=== PATIENT | female | born 1955 | race Asian ===

== ENCOUNTER → 2017-05-24 | Outpatient (REF) | payer OTHER ==
[2017-05-24 16:23] LABS: BASO % 0.7 % (0.0-1.0); EOS # 0.3 10^3/uL (0.0-0.50); EOS % 5.9 % (0.0-3.0); IMMATURE GRANULOCYTE % 0.2 % (0-0); LYMPH # 2.2 10^3/uL (1.5-4.5); LYMPH % 40.4 % (24.0-44.0); MEAN CORPUSCULAR HEMOGLOBIN 27.2 pg (27.0-33.0); MEAN CORPUSCULAR HGB CONC 31.8 g/dl (32.0-36.5); MEAN CORPUSCULAR VOLUME 85.6 fl (80.0-96.0); MONO # 0.4 10^3/uL (0.0-0.8); MONO % 7.7 % (0.0-5.0); NEUTROPHILS # 2.5 10^3/uL (1.8-7.7); NEUTROPHILS % 45.1 % (36.0-66.0); PLATELET COUNT, AUTOMATED 296 10^3/uL (150-450); RED CELL DISTRIBUTION WIDTH 13.8 % (11.5-14.5); WHITE BLOOD COUNT 5.5 10^3/uL (4.0-10.0)
[2017-05-24 16:26] LABS: FOLATE 22.7 NG/ML (>5.4); VITAMIN B12 LEVEL 452 PG/ML (247-911)
[2017-05-24 16:29] LABS: ADD MORPHOLOGY? NO
[2017-05-24 16:33] LABS: ALBUMIN 3.6 GM/DL (3.2-5.2); ALKALINE PHOSPHATASE 103 U/L (45-117); ALT/SGPT 17 U/L (12-78); ANION GAP 7 MEQ/L (8-16); AST/SGOT 16 U/L (15-37); BILIRUBIN,TOTAL 0.3 MG/DL (0.2-1.0); BLOOD UREA NITROGEN 17 MG/DL (7-18); CARBON DIOXIDE LEVEL 29 MEQ/L (21-32); CHLORIDE LEVEL 105 MEQ/L (98-107); CHOLESTEROL LEVEL 226 MG/DL (<200); CREATININE FOR GFR 0.62 MG/DL (0.55-1.02); FREE T4 0.98 NG/DL (0.76-1.46); GLOMERULAR FILTRATION RATE > 60.0 (>45); GLUCOSE, FASTING 82 MG/DL (80-110); POTASSIUM SERUM 3.5 MEQ/L (3.5-5.1); SODIUM LEVEL 141 MEQ/L (136-145); TOTAL PROTEIN 7.2 GM/DL (6.4-8.2); TRIGLYCERIDES LEVEL 123 MG/DL (<150)
[2017-05-24 17:19] LABS: ERYTHROCYTE SEDIMENTATION RATE 39 mm/hr (0-30)
== END ==
LOC: M LABDRAW1 15:30
PROVIDERS: ATTEND Nurse Practitioner Adult Health
DX: Z51.81 Encounter for therapeutic drug level monitoring (principal); Z79.899 Other long term (current) drug therapy; E55.9 Vitamin D deficiency, unspecified; D64.9 Anemia, unspecified; M06.9 Rheumatoid arthritis, unspecified

== ENCOUNTER → 2017-07-17 | Outpatient (CLI) | payer BC ==
[2017-07-17 11:52] LABS: MEAN CORPUSCULAR HEMOGLOBIN 27.5 pg (27.0-33.0); MEAN CORPUSCULAR HGB CONC 32.2 g/dl (32.0-36.5); MEAN CORPUSCULAR VOLUME 85.5 fl (80.0-96.0); PLATELET COUNT, AUTOMATED 298 10^3/uL (150-450); RED CELL DISTRIBUTION WIDTH 13.7 % (11.5-14.5)
[2017-07-17 12:26] LABS: PERCENT SATURATION 16.9 % (13.2-45.0)
== END ==
LOC: M LABDRAW1 10:09
PROVIDERS: ATTEND Specialist
DX: K21.9 Gastro-esophageal reflux disease without esophagitis (principal); D64.9 Anemia, unspecified

== ENCOUNTER → 2017-07-18 | Outpatient (REF) | payer OTHER | LOC: M LAB REF 11:27 | PROVIDERS: ATTEND Specialist | DX: D64.9 Anemia, unspecified (principal); K21.9 Gastro-esophageal reflux disease without esophagitis ==

== ENCOUNTER → 2017-07-31 | Outpatient (REF) | payer OTHER ==
[2017-07-31 15:38] LABS: BASO # 0.1 10^3/uL (0.0-0.2); BASO % 1.1 % (0.0-1.0); EOS # 0.3 10^3/uL (0.0-0.50); EOS % 5.4 % (0.0-3.0); IMMATURE GRANULOCYTE % 0.2 % (0-0); LYMPH # 2.1 10^3/uL (1.5-4.5); MEAN CORPUSCULAR HEMOGLOBIN 27.3 pg (27.0-33.0); MEAN CORPUSCULAR VOLUME 85.5 fl (80.0-96.0); MONO # 0.4 10^3/uL (0.0-0.8); MONO % 8.6 % (0.0-5.0); NEUTROPHILS # 1.9 10^3/uL (1.8-7.7); NEUTROPHILS % 40.7 % (36.0-66.0); PLATELET COUNT, AUTOMATED 297 10^3/uL (150-450); RED CELL DISTRIBUTION WIDTH 13.8 % (11.5-14.5); WHITE BLOOD COUNT 4.7 10^3/uL (4.0-10.0)
[2017-07-31 16:11] LABS: ALT/SGPT 15 U/L (12-78); CREATININE FOR GFR 0.72 MG/DL (0.55-1.02); GLOMERULAR FILTRATION RATE > 60.0 (>45)
[2017-07-31 17:44] LABS: ERYTHROCYTE SEDIMENTATION RATE 24 mm/hr (0-30)
== END ==
LOC: M LABDRAW1 11:15
PROVIDERS: ATTEND Internal Medicine Rheumatology
DX: Z51.81 Encounter for therapeutic drug level monitoring (principal); Z79.899 Other long term (current) drug therapy; M35.1 Other overlap syndromes

== ENCOUNTER → 2017-12-28 | Outpatient (REF) | payer OTHER ==
[2017-12-28 11:45] LABS: BASO % 0.7 % (0.0-1.0); EOS # 0.4 10^3/uL (0.0-0.50); EOS % 6.5 % (0.0-3.0); HEMATOCRIT 33.6 % (36.0-47.0); HEMOGLOBIN 10.8 g/dl (12.0-15.5); IMMATURE GRANULOCYTE % 0.2 % (0-3.0); LYMPH # 2.4 10^3/uL (1.5-4.5); LYMPH % 42.1 % (24.0-44.0); MEAN CORPUSCULAR HEMOGLOBIN 27.1 pg (27.0-33.0); MEAN CORPUSCULAR HGB CONC 32.1 g/dl (32.0-36.5); MEAN CORPUSCULAR VOLUME 84.4 fl (80.0-96.0); MONO # 0.5 10^3/uL (0.0-0.8); NEUTROPHILS # 2.4 10^3/uL (1.8-7.7); NEUTROPHILS % 42.5 % (36.0-66.0); PLATELET COUNT, AUTOMATED 275 10^3/uL (150-450); RED BLOOD COUNT 3.98 10^6/uL (4.00-5.40); RED CELL DISTRIBUTION WIDTH 14.3 % (11.5-14.5); WHITE BLOOD COUNT 5.7 10^3/uL (4.0-10.0)
[2017-12-28 12:05] LABS: TOTAL 25(OH) VITAMIN D 17.5 NG/ML (30.0-100.0)
[2017-12-28 12:06] LABS: FOLATE 19.3 NG/ML (>5.4); VITAMIN B12 LEVEL 497 PG/ML (247-911)
[2017-12-28 12:13] LABS: ALBUMIN 3.7 GM/DL (3.2-5.2); ALBUMIN/GLOBULIN RATIO 0.95 (1.00-1.93); ALKALINE PHOSPHATASE 108 U/L (45-117); ALT/SGPT 20 U/L (12-78); ANION GAP 8 MEQ/L (8-16); AST/SGOT 22 U/L (7-37); BILIRUBIN,TOTAL 0.4 MG/DL (0.2-1.0); BLOOD UREA NITROGEN 13 MG/DL (7-18); CALCIUM LEVEL 9.2 MG/DL (8.8-10.2); CARBON DIOXIDE LEVEL 28 MEQ/L (21-32); CHLORIDE LEVEL 107 MEQ/L (98-107); CHOLESTEROL LEVEL 232 MG/DL (<200); CHOLESTEROL RISK RATIO 3.741 (<5); CREATININE FOR GFR 0.78 MG/DL (0.55-1.30); FERRITIN 11 NG/ML (8-252); FREE T4 1.01 NG/DL (0.76-1.46); GLOMERULAR FILTRATION RATE > 60.0 (>45); GLUCOSE, FASTING 96 MG/DL (70-100); HDL CHOLESTEROL 62 MG/DL (>40); IRON (FE) 66 UG/DL (50-170); LDL CHOLESTEROL 131.4 MG/DL (<100); NON-HDL-C 170 MG/DL; PERCENT SATURATION 17.9 % (13.2-45.0); POTASSIUM SERUM 3.6 MEQ/L (3.5-5.1); SODIUM LEVEL 143 MEQ/L (136-145); TOTAL IRON BINDING CAPACITY 369 UG/DL (250-450); TOTAL PROTEIN 7.6 GM/DL (6.4-8.2); TRIGLYCERIDES LEVEL 193 MG/DL (<150)
[2017-12-28 12:38] LABS: ESTIMATED AVERAGE GLUCOSE 140 MG/DL (60-110); HEMOGLOBIN A1c 6.5 %
[2017-12-28 16:00] LABS: MALB URINE SIEMENS 14.8 MG/L; MAU/CREAT RATIO 12.7 MCG/MG (0.0-30.0)
== END ==
LOC: M LABDRAW1 08:29
DX: D64.9 Anemia, unspecified (principal); E55.9 Vitamin D deficiency, unspecified; R53.1 Weakness; R53.83 Other fatigue; Z79.899 Other long term (current) drug therapy

== ENCOUNTER → 2018-06-04 | Outpatient (CLI) | payer OTHER | LOC: M LRY 12:11 | DX: M15.0 Primary generalized (osteo)arthritis (principal) ==

== ENCOUNTER → 2018-10-21 | Outpatient (REF) | payer OTHER ==
[2018-10-21 16:40] LABS: BASO # 0.1 10^3/uL (0.0-0.2); BASO % 0.7 % (0.0-1.0); EOS # 0.4 10^3/uL (0.0-0.50); EOS % 5.7 % (0.0-3.0); HEMATOCRIT 35.1 % (36.0-47.0); HEMOGLOBIN 11.4 g/dl (12.0-15.5); LYMPH % 40.3 % (24.0-44.0); MEAN CORPUSCULAR HEMOGLOBIN 27.9 pg (27.0-33.0); MEAN CORPUSCULAR HGB CONC 32.5 g/dl (32.0-36.5); MEAN CORPUSCULAR VOLUME 85.8 fl (80.0-96.0); MONO # 0.7 10^3/uL (0.0-0.8); NEUTROPHILS # 3.2 10^3/uL (1.8-7.7); NEUTROPHILS % 44.2 % (36.0-66.0); PLATELET COUNT, AUTOMATED 287 10^3/uL (150-450); RED BLOOD COUNT 4.09 10^6/uL (4.00-5.40); WHITE BLOOD COUNT 7.3 10^3/uL (4.0-10.0)
[2018-10-21 17:02] LABS: ALT/SGPT 18 U/L (12-78); BILIRUBIN,TOTAL 0.3 MG/DL (0.2-1.0); BLOOD UREA NITROGEN 13 MG/DL (7-18); CARBON DIOXIDE LEVEL 27 MEQ/L (21-32); CHLORIDE LEVEL 106 MEQ/L (98-107); CREATININE FOR GFR 0.65 MG/DL (0.55-1.30); GLOMERULAR FILTRATION RATE > 60.0 (>45); GLUCOSE, FASTING 113 MG/DL (70-100); SODIUM LEVEL 141 MEQ/L (136-145); TOTAL PROTEIN 7.8 GM/DL (6.4-8.2)
== END ==
LOC: M SFHCPLAZ 14:33
PROVIDERS: ATTEND Internal Medicine Rheumatology
DX: M15.0 Primary generalized (osteo)arthritis (principal)

== ENCOUNTER → 2018-11-08 | Outpatient (REF) | payer OTHER ==
[2018-11-08 13:38] LABS: HEMATOCRIT 34.8 % (36.0-47.0); HEMOGLOBIN 11.1 g/dl (12.0-15.5); MEAN CORPUSCULAR HEMOGLOBIN 27.8 pg (27.0-33.0); MEAN CORPUSCULAR HGB CONC 31.9 g/dl (32.0-36.5); PLATELET COUNT, AUTOMATED 269 10^3/uL (150-450); WHITE BLOOD COUNT 5.6 10^3/uL (4.0-10.0)
[2018-11-08 13:42] LABS: APPEARANCE, URINE CLEAR (CLEAR); BACTERIA, URINE AUTO NEGATIVE (NEGATIVE); BILIRUBIN, URINE AUTO NEGATIVE (NEGATIVE); BLOOD, URINE BLOOD 1+ (NEGATIVE); COLOR, URINE YELLOW (YELLOW); GLUCOSE, URINE (UA) AUTO NEGATIVE (NEGATIVE); KETONE, URINE AUTO NEGATIVE (NEGATIVE); LEUKOCYTE ESTERASE, URINE AUTO NEGATIVE (NEGATIVE); MUCUS, URINE SMALL (NEGATIVE); NITRITE, URINE AUTO NEGATIVE (NEGATIVE); PROTEIN, URINE AUTO NEGATIVE (NEGATIVE); RBC, URINE AUTO 5 /HPF (0-3); SPECIFIC GRAVITY URINE AUTO 1.018 (1.002-1.035); SQUAMOUS EPITHELIAL CELL UR AU 1 /HPF (0-6); UROBILINOGEN, URINE AUTO 0.2 mg/dL (0.0-2.0); WBC, URINE AUTO 1 /HPF (0-3)
[2018-11-08 13:45] LABS: ALBUMIN 3.8 GM/DL (3.2-5.2); ALT/SGPT 32 U/L (12-78); BILIRUBIN,TOTAL 0.5 MG/DL (0.2-1.0); BLOOD UREA NITROGEN 16 MG/DL (7-18); C REACTIVE PROTEIN QUANTITATIV < 0.30 MG/DL (0.00-0.30); CARBON DIOXIDE LEVEL 28 MEQ/L (21-32); CHLORIDE LEVEL 107 MEQ/L (98-107); CHOLESTEROL LEVEL 223 MG/DL (<200); CHOLESTEROL RISK RATIO 3.328 (<5); CPK CREATINE PHOSPHOKINASE 70 U/L (26-192); CREATININE FOR GFR 0.76 MG/DL (0.55-1.30); FREE T4 0.95 NG/DL (0.76-1.46); GLOMERULAR FILTRATION RATE > 60.0 (>45); GLUCOSE, FASTING 93 MG/DL (70-100); HDL CHOLESTEROL 67 MG/DL (>40); LDL CHOLESTEROL 110 MG/DL (<100); NON-HDL-C 156 MG/DL; POTASSIUM SERUM 3.9 MEQ/L (3.5-5.1); RHEUMATOID FACTOR QUANT < 10.0 IU/ML (<15.0); SODIUM LEVEL 139 MEQ/L (136-145); TOTAL PROTEIN 7.5 GM/DL (6.4-8.2); TRIGLYCERIDES LEVEL 228 MG/DL (<150)
[2018-11-08 13:54] LABS: HEMOGLOBIN A1c 6.1 %
[2018-11-08 14:37] LABS: ERYTHROCYTE SEDIMENTATION RATE 22 mm/hr (0-30)
[2018-11-09 15:10] LABS: ANTINUCLEAR ANTIBODIES DIRECT Negative (Negative)
[2018-11-12 00:09] LABS: CYCLIC CITRULLINATED PEPTIDE 6 units (0-19)
== END ==
LOC: M LABDRAW1 12:56
PROVIDERS: ATTEND Internal Medicine Cardiovascular Disease
DX: D64.9 Anemia, unspecified (principal); E03.9 Hypothyroidism, unspecified; M10.9 Gout, unspecified; E78.5 Hyperlipidemia, unspecified

== ENCOUNTER 2019-02-04 01:33 | Emergency (ER) | payer BC, OTHER ==
[~2019-02-04] VITALS: Ht 154.9 cm; Wt 61.8 kg
[2019-02-04 01:55] LABS: BASO # 0.1 10^3/uL (0.0-0.2); BASO % 0.6 % (0.0-1.0); EOS # 0.7 10^3/uL (0.0-0.50); EOS % 8.6 % (0.0-3.0); HEMATOCRIT 32.2 % (36.0-47.0); HEMOGLOBIN 10.4 g/dl (12.0-15.5); LYMPH # 3.1 10^3/uL (1.5-4.5); LYMPH % 37.9 % (24.0-44.0); MEAN CORPUSCULAR HEMOGLOBIN 28.3 pg (27.0-33.0); MEAN CORPUSCULAR HGB CONC 32.3 g/dl (32.0-36.5); MEAN CORPUSCULAR VOLUME 87.5 fl (80.0-96.0); MONO # 0.7 10^3/uL (0.0-0.8); NEUTROPHILS # 3.7 10^3/uL (1.8-7.7); NEUTROPHILS % 44.8 % (36.0-66.0); PLATELET COUNT, AUTOMATED 259 10^3/uL (150-450); RED BLOOD COUNT 3.68 10^6/uL (4.00-5.40); WHITE BLOOD COUNT 8.3 10^3/uL (4.0-10.0)
[2019-02-04 02:11] LABS: INR 0.95; PROTHROMBIN TIME 12.8 SECONDS (12.1-14.4)
[2019-02-04 02:22] LABS: ALBUMIN 3.5 GM/DL (3.2-5.2); ALT/SGPT 16 U/L (12-78); BILIRUBIN,TOTAL 0.3 MG/DL (0.2-1.0); BLOOD UREA NITROGEN 20 MG/DL (7-18); CALCIUM LEVEL 8.5 MG/DL (8.8-10.2); CARBON DIOXIDE LEVEL 28 MEQ/L (21-32); CHLORIDE LEVEL 110 MEQ/L (98-107); CK-MB VALUE MASS < 1.0 NG/ML (<3.6); CPK CREATINE PHOSPHOKINASE 101 U/L (26-192); CREATININE FOR GFR 0.81 MG/DL (0.55-1.30); GLOMERULAR FILTRATION RATE > 60.0 (>45); GLUCOSE, FASTING 110 MG/DL (70-100); LIPASE 193 U/L (73-393); MB/CK RELATIVE INDEX 0.99 (< OR =4); POTASSIUM SERUM 3.5 MEQ/L (3.5-5.1); SODIUM LEVEL 145 MEQ/L (136-145); TOTAL PROTEIN 7.4 GM/DL (6.4-8.2); TROPONIN I < 0.02 NG/ML (< 0.10)
[2019-02-04] MEDS ORDERED: IPRATROPIUM 0.5MG/ALBUTEROL 2.5MG INH SOL UD 3ML (DUONEB)(J7620) NEB ONE (03:00)
[2019-02-04] MEDS ORDERED: dexameTHASONE 20 MG/5 ML VIAL (J1100) IV ONE (03:00)
[2019-02-04] MEDS ORDERED: ALBU17IN2 INH (03:37)
[2019-02-04] MEDS ORDERED: PRED20TA PO (03:37)
[2019-02-04 03:42] VITALS: BP 115/74
--- NOTE | 2019-02-04 08:18 | ECGEPIP ---
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
--- NOTE | 2019-02-04 08:52 | REP ---
CHEST, SINGLE VIEW: Single view of the chest is performed and compared to a prior study of 12/25/2015. There is no acute infiltrate. Mild chronic interstitial prominence is noted in the lung bases bilaterally. There is mild cardiomegaly. Mediastinal silhouette is unchanged. IMPRESSION: Mild cardiomegaly. No acute infiltrate or pulmonary edema. Electronically Signed by Robinson Jones MD 02/04/2019 12:44 P
== END 2019-02-04 03:53 | disposition home or self-care (01) ==
LOC: M ED 01:33
DX: J40 Bronchitis, not specified as acute or chronic (principal); J30.2 Other seasonal allergic rhinitis; M19.90 Unspecified osteoarthritis, unspecified site; Z88.6 Allergy status to analgesic agent
CPT/HCPCS: 71045; 80053; 82550; 82553; 83690; 84484; 85025; 85610; 93005; 93041; 94640; 94760; 96374; 99285; J1100

== ENCOUNTER → 2019-03-24 | Outpatient (CLI) | payer BC, OTHER ==
[~2019-03-24] MED LIST: ALBU17IN2 INH; PRED20TA PO
--- NOTE | 2019-03-24 16:04 | REP ---
Bilateral lower extremity arterial Doppler ultrasound: History: Intermittent claudication, atherosclerosis. Findings: The ankle brachial indices are normal, 1.1 on the right, and 1.0 on the left. Mild calcific plaquing is observed. No high-grade stenosis is seen on either side. Velocity chart right lower extremity arteries:Right CF A 144 cm/SProfunda 88Proximal SFA 122/133Mid SFA 128/108Distal SFA 98Popliteal 84Proximal NAIMA 41Tibioperoneal trunk 66Proximal SOLDERER PRODUCTION LINE 49 nineDistal SOLDERER PRODUCTION LINE 27/28Distal NAIMA 93 Velocity chart left lower extremity arteries:Left SOLAR SALES MANAGER 151 cm/SProfunda 89Proximal SFA 126/119Mid SFA 127/104Distal SFA 76Popliteal 94Proximal NAIMA 39Tibioperoneal trunk 50Proximal SOLDERER PRODUCTION LINE 58Distal SOLDERER PRODUCTION LINE 94Distal AT A 40 Electronically Signed by Ezequiel Herrera MD 03/24/2019 05:18 P
== END ==
LOC: M RAD 12:34
PROVIDERS: ATTEND Surgery Vascular Surgery
DX: I70.213 Atherosclerosis of native arteries of extremities with intermittent claudication, bilateral legs (principal); I87.393 Chronic venous hypertension (idiopathic) with other complications of bilateral lower extremity

== ENCOUNTER → 2019-03-26 | Outpatient (CLI) | payer BC, OTHER ==
[~2019-03-26] MED LIST changes: -ALBU17IN2 INH; +PROV108A INH
--- NOTE | 2019-03-26 13:53 | REP ---
Lower Extremity Vein Mapping: Right Reflux Left Reflux CFV Reflux yes no Ant. Acc. GSV Present no yes Reflux -- no Greater saph/fem junction 5.8 mm no 5.4 mm no Greater saph vein mid thigh 2.9 mm no 3.7 mm no Greater saph vein at knee -- mm no -- mm no SFV PROX -- mm yes -- mm no SFV MID -- mm yes -- mm no SFV DISTAL -- mm no --mm no POPLITEAL VEIN -- mm no --mm no LSV 2.8 mm no 2.9 mm no Right lower extremity: There is a small volume of reflux in the deep system with the bed tipped. No reflux is identified in the G S V. Left lower extremity: No reflux is identified in the deep or superficial system. Electronically Signed by Robinson Lyon MD 03/26/2019 01:44 P
== END ==
LOC: M RAD 12:30
PROVIDERS: ATTEND Surgery Vascular Surgery
DX: I70.213 Atherosclerosis of native arteries of extremities with intermittent claudication, bilateral legs (principal); I87.393 Chronic venous hypertension (idiopathic) with other complications of bilateral lower extremity

== ENCOUNTER → 2019-05-14 | Outpatient (REF) | payer OTHER ==
[2019-05-14 16:18] LABS: APPEARANCE, URINE CLEAR (CLEAR); BACTERIA, URINE AUTO NEGATIVE (NEGATIVE); BILIRUBIN, URINE AUTO NEGATIVE (NEGATIVE); BLOOD, URINE BLOOD 1+ (NEGATIVE); COLOR, URINE YELLOW (YELLOW); GLUCOSE, URINE (UA) AUTO NEGATIVE (NEGATIVE); KETONE, URINE AUTO NEGATIVE (NEGATIVE); LEUKOCYTE ESTERASE, URINE AUTO NEGATIVE (NEGATIVE); MUCUS, URINE SMALL (NEGATIVE); NITRITE, URINE AUTO NEGATIVE (NEGATIVE); PROTEIN, URINE AUTO NEGATIVE (NEGATIVE); RBC, URINE AUTO 8 /HPF (0-3); SPECIFIC GRAVITY URINE AUTO 1.011 (1.002-1.035); SQUAMOUS EPITHELIAL CELL UR AU 3 /HPF (0-6); UROBILINOGEN, URINE AUTO 0.2 mg/dL (0.0-2.0); WBC, URINE AUTO 0 /HPF (0-3)
[2019-05-14 16:21] LABS: HEMATOCRIT 34.9 % (36.0-47.0); HEMOGLOBIN 10.9 g/dl (12.0-15.5); MEAN CORPUSCULAR HEMOGLOBIN 28.2 pg (27.0-33.0); MEAN CORPUSCULAR HGB CONC 31.2 g/dl (32.0-36.5); MEAN CORPUSCULAR VOLUME 90.2 fl (80.0-96.0); PLATELET COUNT, AUTOMATED 256 10^3/uL (150-450); RED BLOOD COUNT 3.87 10^6/uL (4.00-5.40); WHITE BLOOD COUNT 5.3 10^3/uL (4.0-10.0)
[2019-05-14 16:36] LABS: ALBUMIN 3.6 GM/DL (3.2-5.2); ALT/SGPT 10 U/L (12-78); BILIRUBIN,TOTAL 0.5 MG/DL (0.2-1.0); BLOOD UREA NITROGEN 8 MG/DL (7-18); CALCIUM LEVEL 9.1 MG/DL (8.8-10.2); CARBON DIOXIDE LEVEL 27 MEQ/L (21-32); CHLORIDE LEVEL 108 MEQ/L (98-107); CHOLESTEROL LEVEL 152 MG/DL (<200); CHOLESTEROL RISK RATIO 2.338 (<5); CREATININE FOR GFR 0.77 MG/DL (0.55-1.30); FREE T4 1.07 NG/DL (0.76-1.46); GLOMERULAR FILTRATION RATE > 60.0 (>45); GLUCOSE, FASTING 82 MG/DL (70-100); HDL CHOLESTEROL 65 MG/DL (>40); IRON (FE) 72 UG/DL (50-170); LDL CHOLESTEROL 61 MG/DL (<100); MAGNESIUM LEVEL 2.1 MG/DL (1.8-2.4); NON-HDL-C 87 MG/DL; SODIUM LEVEL 141 MEQ/L (136-145); TOTAL PROTEIN 7.2 GM/DL (6.4-8.2); TRIGLYCERIDES LEVEL 131 MG/DL (<150); URIC ACID 4.9 MG/DL (2.6-6.0); VITAMIN B12 LEVEL 694 PG/ML (247-911)
[2019-05-14 18:46] LABS: HEMOGLOBIN A1c 6.3 %
== END ==
LOC: M LABDRAW1 12:39
PROVIDERS: ATTEND Internal Medicine Cardiovascular Disease
DX: E78.5 Hyperlipidemia, unspecified (principal); M15.9 Polyosteoarthritis, unspecified; I11.9 Hypertensive heart disease without heart failure; I49.49 Other premature depolarization; D64.9 Anemia, unspecified; R53.83 Other fatigue; K21.9 Gastro-esophageal reflux disease without esophagitis; K50.90 Crohn's disease, unspecified, without complications; I10 Essential (primary) hypertension

== ENCOUNTER → 2020-04-02 | Outpatient (REF) | payer OTHER ==
[2020-05-01 03:47] LABS: APPEARANCE, URINE HAZY (CLEAR); BACTERIA, URINE AUTO NEGATIVE (NEGATIVE); BILIRUBIN, URINE AUTO NEGATIVE (NEGATIVE); BLOOD, URINE BLOOD NEGATIVE (NEGATIVE); CALCIUM OXALATE CRYSTALS SMALL; COLOR, URINE YELLOW (YELLOW); ERYTHROCYTE SEDIMENTATION RATE 26 mm/hr (0-30); GLUCOSE, URINE (UA) AUTO NEGATIVE (NEGATIVE); HEMATOCRIT 37.1 % (36.0-47.0); HEMOGLOBIN 11.8 g/dl (12.0-15.5); KETONE, URINE AUTO NEGATIVE (NEGATIVE); LEUKOCYTE ESTERASE, URINE AUTO NEGATIVE (NEGATIVE); MEAN CORPUSCULAR HEMOGLOBIN 27.9 pg (27.0-33.0); MEAN CORPUSCULAR HGB CONC 31.8 g/dl (32.0-36.5); MEAN CORPUSCULAR VOLUME 87.7 fl (80.0-96.0); MUCUS, URINE SMALL (NEGATIVE); NITRITE, URINE AUTO NEGATIVE (NEGATIVE); PLATELET COUNT, AUTOMATED 271 10^3/uL (150-450); PROTEIN, URINE AUTO NEGATIVE (NEGATIVE); RBC, URINE AUTO 2 /HPF (0-3); RED BLOOD COUNT 4.23 10^6/uL (4.00-5.40); SPECIFIC GRAVITY URINE AUTO 1.017 (1.002-1.035); SQUAMOUS EPITHELIAL CELL UR AU 5 /HPF (0-6); UROBILINOGEN, URINE AUTO 0.2 mg/dL (0.0-2.0); WBC, URINE AUTO 3 /HPF (0-3); WHITE BLOOD COUNT 7.4 10^3/uL (4.0-10.0)
[2020-05-10 09:23] LABS: Lyme Disease IgG/IgM Antibodie See Separate Report
[2020-05-10 09:24] LABS: ANTINUCLEAR ANTIBODIES DIRECT See Separate Report
[2020-05-19 04:48] LABS: HEMOGLOBIN A1c 6.1 %
[2020-05-19 04:49] LABS: ALBUMIN 3.9 GM/DL (3.2-5.2); ALT/SGPT 12 U/L (12-78); BILIRUBIN,TOTAL 0.5 MG/DL (0.2-1.0); BLOOD UREA NITROGEN 10 MG/DL (7-18); CALCIUM LEVEL 9.3 MG/DL (8.8-10.2); CARBON DIOXIDE LEVEL 28 MEQ/L (21-32); CHLORIDE LEVEL 108 MEQ/L (98-107); CHOLESTEROL LEVEL 250 MG/DL (<200); CHOLESTEROL RISK RATIO 3.731 (<5); CPK CREATINE PHOSPHOKINASE 58 U/L (26-192); CREATININE FOR GFR 0.76 MG/DL (0.55-1.30); GLOMERULAR FILTRATION RATE > 60.0 (>45); GLUCOSE, FASTING 87 MG/DL (70-100); HDL CHOLESTEROL 67 MG/DL (>40); IRON (FE) 93 UG/DL (50-170); LDL CHOLESTEROL 155 MG/DL (<100); MAGNESIUM LEVEL 2.1 MG/DL (1.8-2.4); NON-HDL-C 183 MG/DL; RHEUMATOID FACTOR QUANT < 10.0 IU/ML (<15.0); SODIUM LEVEL 140 MEQ/L (136-145); TOTAL PROTEIN 7.5 GM/DL (6.4-8.2); TRIGLYCERIDES LEVEL 138 MG/DL (<150)
== END ==
LOC: M PLALAB 06:27
PROVIDERS: ATTEND Internal Medicine Cardiovascular Disease
DX: E11.9 Type 2 diabetes mellitus without complications (principal); N39.0 Urinary tract infection, site not specified; E78.5 Hyperlipidemia, unspecified; D64.9 Anemia, unspecified; M19.90 Unspecified osteoarthritis, unspecified site

== ENCOUNTER → 2020-06-26 | Outpatient (CLI) | payer OTHER ==
[2020-06-26 13:28] LABS: HEMATOCRIT 36.6 % (36.0-47.0); HEMOGLOBIN 11.4 g/dl (12.0-15.5); MEAN CORPUSCULAR HEMOGLOBIN 27.9 pg (27.0-33.0); MEAN CORPUSCULAR HGB CONC 31.1 g/dl (32.0-36.5); MEAN CORPUSCULAR VOLUME 89.5 fl (80.0-96.0); PLATELET COUNT, AUTOMATED 277 10^3/uL (150-450); RED BLOOD COUNT 4.09 10^6/uL (4.00-5.40); WHITE BLOOD COUNT 6.8 10^3/uL (4.0-10.0)
[2020-06-26 14:08] LABS: ALBUMIN 3.7 GM/DL (3.2-5.2); ALT/SGPT < 6 U/L (12-78); BILIRUBIN,TOTAL 0.5 MG/DL (0.2-1.0); BLOOD UREA NITROGEN 10 MG/DL (7-18); CALCIUM LEVEL 10.6 MG/DL (8.8-10.2); CARBON DIOXIDE LEVEL 18 MEQ/L (21-32); CHLORIDE LEVEL 108 MEQ/L (98-107); CHOLESTEROL LEVEL 131 MG/DL (<200); CHOLESTEROL RISK RATIO 2.079 (<5); CPK CREATINE PHOSPHOKINASE 32 U/L (26-192); CREATININE FOR GFR 0.21 MG/DL (0.55-1.30); GLOMERULAR FILTRATION RATE > 60.0 (>45); GLUCOSE, FASTING 89 MG/DL (70-100); HDL CHOLESTEROL 63 MG/DL (>40); IRON (FE) 79 UG/DL (50-170); LDL CHOLESTEROL 33 MG/DL (<100); NON-HDL-C 68 MG/DL; POTASSIUM SERUM 4.4 MEQ/L (3.5-5.1); SODIUM LEVEL 141 MEQ/L (136-145); TOTAL PROTEIN 7.1 GM/DL (6.4-8.2); TRIGLYCERIDES LEVEL 176 MG/DL (<150)
== END ==
LOC: M WUC 11:50
PROVIDERS: ATTEND Internal Medicine Cardiovascular Disease
DX: E78.5 Hyperlipidemia, unspecified (principal)

== ENCOUNTER 2020-08-12 01:58 | Emergency (ER) | payer BC, OTHER ==
[~2020-08-12] VITALS: Ht 154.9 cm; Wt 59.9 kg
[2020-08-12] MEDS ORDERED: PANT40TA29 (02:15)
[2020-08-12] MEDS ORDERED: MIRT-62 (02:15)
[2020-08-12] MEDS ORDERED: AMOX500T2 (02:15)
[2020-08-12] MEDS ORDERED: ROSU5TAB5 (02:15)
[2020-08-12] MEDS ORDERED: GI COCKTAIL 50ML BTL(HYOSCYAMINE/MAALOX/LIDOCAINE VISCOUS)(1:3:1) PO ONE (03:00)
[2020-08-12] MEDS ORDERED: NS 1,000 ML IV ONE (03:00)
[2020-08-12 03:04] LABS: BASO % 0.2 % (0.0-1.0); EOS # 0.2 10^3/uL (0.0-0.5); EOS % 1.1 % (0.0-3.0); HEMATOCRIT 35.8 % (36.0-47.0); HEMOGLOBIN 11.3 g/dl (12.0-15.5); LYMPH # 1.3 10^3/uL (1.5-5.0); LYMPH % 9.5 % (24.0-44.0); MEAN CORPUSCULAR HEMOGLOBIN 27.8 pg (27.0-33.0); MEAN CORPUSCULAR HGB CONC 31.6 g/dl (32.0-36.5); MONO % 7.3 % (0.0-5.0); NEUTROPHILS # 10.8 10^3/uL (1.5-8.5); NEUTROPHILS % 81.6 % (36.0-66.0); PLATELET COUNT, AUTOMATED 269 10^3/uL (150-450); RED BLOOD COUNT 4.07 10^6/uL (4.00-5.40); WHITE BLOOD COUNT 13.3 10^3/uL (4.0-10.0)
[2020-08-12 03:08] LABS: INR 0.96
[2020-08-12 03:17] LABS: ALBUMIN 3.9 GM/DL (3.2-5.2); ALT/SGPT 30 U/L (12-78); BILIRUBIN,TOTAL 0.4 MG/DL (0.2-1.0); BLOOD UREA NITROGEN 13 MG/DL (7-18); CALCIUM LEVEL 8.8 MG/DL (8.8-10.2); CARBON DIOXIDE LEVEL 26 MEQ/L (21-32); CHLORIDE LEVEL 106 MEQ/L (98-107); CK-MB VALUE MASS < 1.0 NG/ML (<3.6); CPK CREATINE PHOSPHOKINASE 62 U/L (26-192); CREATININE FOR GFR 0.78 MG/DL (0.55-1.30); GLOMERULAR FILTRATION RATE > 60.0 (>45); GLUCOSE, FASTING 126 MG/DL (70-100); MB/CK RELATIVE INDEX 1.61 (< OR =4); POTASSIUM SERUM 3.6 MEQ/L (3.5-5.1); SODIUM LEVEL 141 MEQ/L (136-145); TOTAL PROTEIN 7.8 GM/DL (6.4-8.2); TROPONIN I < 0.02 NG/ML (< 0.10)
--- NOTE | 2020-08-12 03:46 | REPVR ---
PROCEDURE INFORMATION: Exam: XR Chest, 1 View Exam date and time: 08/12/2020 2:46 AM Age: 65 years old Clinical indication: Other: Cp; Additional info: Chest pain TECHNIQUE: Imaging protocol: XR of the chest Views: 1 view. COMPARISON: CR PORTABLE CHEST X-RAY 2019-02-04 02:24 FINDINGS: Lungs: Unremarkable. No consolidation. Pleural space: Unremarkable. No pleural effusion. No pneumothorax. Heart/Mediastinum: Unremarkable. No cardiomegaly. Bones/joints: Unremarkable. IMPRESSION: No significant change. Electronically signed by: Osiel Meza On 08/12/2020 03:45:53 AM
[2020-08-12 04:33] LABS: RSV AMPLIFICATION NEGATIVE (NEGATIVE)
[2020-08-12] MEDS ORDERED: AZIT-12 PO (04:41)
[2020-08-12 05:00] VITALS: BP 124/63
--- NOTE | 2020-08-12 13:36 | ECGEPIP ---
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
== END 2020-08-12 05:15 | disposition home or self-care (01) ==
LOC: M ED 01:58
DX: K21.9 Gastro-esophageal reflux disease without esophagitis (principal); Z79.899 Other long term (current) drug therapy; Z88.8 Allergy status to other drugs, medicaments and biological substances

== ENCOUNTER → 2020-12-06 | Outpatient (CLI) | payer BC, OTHER ==
[~2020-12-06] MED LIST changes: +AMOX500T2; +AZIT-12 PO; +MIRT-62; +PANT40TA29; +ROSU5TAB5
[2020-12-06 15:45] LABS: HEMATOCRIT 35.9 % (36.0-47.0); HEMOGLOBIN 11.4 g/dl (12.0-15.5); MEAN CORPUSCULAR HGB CONC 31.8 g/dl (32.0-36.5); MEAN CORPUSCULAR VOLUME 88.2 fl (80.0-96.0); PLATELET COUNT, AUTOMATED 244 10^3/uL (150-450); RED BLOOD COUNT 4.07 10^6/uL (4.00-5.40); WHITE BLOOD COUNT 6.9 10^3/uL (4.0-10.0)
[2020-12-06 16:24] LABS: ALBUMIN 3.9 GM/DL (3.2-5.2); ALT/SGPT 14 U/L (12-78); BILIRUBIN,TOTAL 0.6 MG/DL (0.2-1.0); BLOOD UREA NITROGEN 13 MG/DL (7-18); CALCIUM LEVEL 9.4 MG/DL (8.8-10.2); CARBON DIOXIDE LEVEL 28 MEQ/L (21-32); CHLORIDE LEVEL 109 MEQ/L (98-107); CHOLESTEROL LEVEL 181 MG/DL (<200); CHOLESTEROL RISK RATIO 2.381 (<5); GLOMERULAR FILTRATION RATE > 60.0 (>45); GLUCOSE, FASTING 91 MG/DL (70-100); HDL CHOLESTEROL 76 MG/DL (>40); LDL CHOLESTEROL 76 MG/DL (<100); NON-HDL-C 105 MG/DL; POTASSIUM SERUM 4.1 MEQ/L (3.5-5.1); SODIUM LEVEL 141 MEQ/L (136-145); TOTAL PROTEIN 7.5 GM/DL (6.4-8.2); TRIGLYCERIDES LEVEL 143 MG/DL (<150)
== END ==
LOC: M PLALAB 12:21
PROVIDERS: ATTEND Internal Medicine Cardiovascular Disease
DX: E78.5 Hyperlipidemia, unspecified (principal); D64.9 Anemia, unspecified; E03.9 Hypothyroidism, unspecified

== ENCOUNTER 2021-02-25 17:41 | Emergency (ER) | payer BC, OTHER, MEDICARE ==
[~2021-02-25] VITALS: Ht 154.9 cm; Wt 60.8 kg
--- NOTE | 2021-02-25 18:06 | REP ---
INDICATION: CHEST PAIN COMPARISON: 08/12/2020 TECHNIQUE: Portable AP view of the chest FINDINGS: The mediastinum and cardiac silhouette are stable and within normal limits for portable technique. The lung rogers demonstrate stable chronic changes without acute consolidation, effusion, or pneumothorax. Skeletal structures are intact. IMPRESSION: No focal consolidation or effusion. <Electronically signed by Dami Lambert > 02/25/21 [id number]
[2021-02-25] MEDS ORDERED: METO1TAB32 (18:24)
[2021-02-25] MEDS ORDERED: TRAZ-189 (18:24)
[2021-02-25 18:26] LABS: BASO % 0.5 % (0.0-1.0); EOS # 0.4 10^3/uL (0.0-0.5); EOS % 5.8 % (0.0-3.0); HEMATOCRIT 35.5 % (36.0-47.0); HEMOGLOBIN 11.3 g/dl (12.0-15.5); LYMPH # 3.5 10^3/uL (1.5-5.0); LYMPH % 47.6 % (24.0-44.0); MEAN CORPUSCULAR HEMOGLOBIN 28.1 pg (27.0-33.0); MEAN CORPUSCULAR HGB CONC 31.8 g/dl (32.0-36.5); MEAN CORPUSCULAR VOLUME 88.3 fl (80.0-96.0); MONO # 0.6 10^3/uL (0.0-0.8); MONO % 8.5 % (2.0-8.0); NEUTROPHILS # 2.7 10^3/uL (1.5-8.5); NEUTROPHILS % 37.5 % (36.0-66.0); PLATELET COUNT, AUTOMATED 278 10^3/uL (150-450); RED BLOOD COUNT 4.02 10^6/uL (4.00-5.40); WHITE BLOOD COUNT 7.3 10^3/uL (4.0-10.0)
[2021-02-25] MEDS ORDERED: GI COCKTAIL 50ML BTL(HYOSCYAMINE/MAALOX/LIDOCAINE VISCOUS)(1:3:1) PO ONE (18:40)
[2021-02-25] MEDS ORDERED: CARA1TAB6 PO (18:56)
[2021-02-25] MEDS ORDERED: PROT1TAB2 PO (18:56)
[2021-02-25] MEDS ORDERED: METO1TAB32 PO (18:56)
[2021-02-25 19:00] LABS: ALT/SGPT 17 U/L (12-78); BILIRUBIN,DIRECT 0.1 MG/DL (0.0-0.2); BILIRUBIN,TOTAL 0.4 MG/DL (0.2-1.0); BLOOD UREA NITROGEN 10 MG/DL (7-18); CALCIUM LEVEL 9.5 MG/DL (8.8-10.2); CARBON DIOXIDE LEVEL 25 MEQ/L (21-32); CHLORIDE LEVEL 107 MEQ/L (98-107); CK-MB VALUE MASS < 1.0 NG/ML (<3.6); CPK CREATINE PHOSPHOKINASE 94 U/L (26-192); CREATININE FOR GFR 0.68 MG/DL (0.55-1.30); GLOMERULAR FILTRATION RATE > 60.0 (>45); GLUCOSE, FASTING 81 MG/DL (70-100); LIPASE 137 U/L (73-393); MB/CK RELATIVE INDEX 1.06 (< OR =4); POTASSIUM SERUM 3.8 MEQ/L (3.5-5.1); SODIUM LEVEL 141 MEQ/L (136-145); TROPONIN I < 0.02 NG/ML (< 0.10)
[2021-02-25] MEDS ORDERED: METOPROLOL SUCC *XL* 25MG TAB (TopROL *XL*) PO ONE (20:05)
[2021-02-25 20:11] VITALS: BP 156/71
[2021-02-25 20:34] VITALS: BP 149/73
--- NOTE | 2021-02-25 20:35 | ECGEPIP ---
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
== END 2021-02-25 20:36 | disposition home or self-care (01) ==
LOC: M ED 17:41
DX: K21.9 Gastro-esophageal reflux disease without esophagitis (principal); K29.70 Gastritis, unspecified, without bleeding; I10 Essential (primary) hypertension; Z88.8 Allergy status to other drugs, medicaments and biological substances; Z79.899 Other long term (current) drug therapy

== ENCOUNTER → 2021-03-16 | Outpatient (CLI) | payer BC, OTHER ==
[~2021-03-16] MED LIST changes: +CARA1TAB6 PO; +METO1TAB32; +METO1TAB32 PO; +PROT1TAB2 PO; +TRAZ-189
--- NOTE | 2021-03-16 12:08 | REP ---
INDICATION: NEOPLASM OF THYROID GLAND. COMPARISON: None. TECHNIQUE: Real-time sonographic evaluation of thyroid performed. FINDINGS: Both lobes of thyroid are diffusely heterogeneous in echotexture, right lobe measuring 3.4 x 1.0 x 1.4 cm and left lobe 3.1 x 1.5 x 1.1 cm. A hypoechoic nodule in the upper pole of the right lobe measures 4 mm in diameter and is likely of no clinical significance. IMPRESSION: No evidence of thyroid enlargement. Diffuse heterogeneous echotexture. A 4 mm nodule in the right upper pole is likely clinically insignificant. <Electronically signed by Robinson Jones > 03/16/21 [id number]
== END ==
LOC: M RAD 11:26
PROVIDERS: ATTEND Otolaryngology
DX: E04.1 Nontoxic single thyroid nodule (principal)

== ENCOUNTER → 2021-07-10 | Outpatient (CLI) | payer BC, OTHER ==
[2021-07-10 11:53] LABS: HEMATOCRIT 34.8 % (36.0-47.0); HEMOGLOBIN 11.1 g/dl (12.0-15.5); MEAN CORPUSCULAR HEMOGLOBIN 28.1 pg (27.0-33.0); MEAN CORPUSCULAR HGB CONC 31.9 g/dl (32.0-36.5); MEAN CORPUSCULAR VOLUME 88.1 fl (80.0-96.0); PLATELET COUNT, AUTOMATED 277 10^3/uL (150-450); RED BLOOD COUNT 3.95 10^6/uL (4.00-5.40); WHITE BLOOD COUNT 7.1 10^3/uL (4.0-10.0)
[2021-07-10 12:22] LABS: ALBUMIN 3.7 GM/DL (3.2-5.2); ALT/SGPT 14 U/L (12-78); BILIRUBIN,TOTAL 0.3 MG/DL (0.2-1.0); BLOOD UREA NITROGEN 14 MG/DL (7-18); CALCIUM LEVEL 9.5 MG/DL (8.8-10.2); CARBON DIOXIDE LEVEL 27 MEQ/L (21-32); CHLORIDE LEVEL 108 MEQ/L (98-107); CHOLESTEROL LEVEL 185 MG/DL (<200); CHOLESTEROL RISK RATIO 2.681 (<5); CREATININE FOR GFR 0.66 MG/DL (0.55-1.30); GLOMERULAR FILTRATION RATE > 60.0 (>45); GLUCOSE, FASTING 95 MG/DL (70-100); HDL CHOLESTEROL 69 MG/DL (>40); LDL CHOLESTEROL 87 MG/DL (<100); NON-HDL-C 116 MG/DL; POTASSIUM SERUM 4.1 MEQ/L (3.5-5.1); RHEUMATOID FACTOR QUANT 11.4 IU/ML (<15.0); SODIUM LEVEL 140 MEQ/L (136-145); TOTAL PROTEIN 7.7 GM/DL (6.4-8.2); TRIGLYCERIDES LEVEL 147 MG/DL (<150)
--- NOTE | 2021-07-10 13:00 | REP ---
INDICATION: ARTHRITIS. COMPARISON: Left knee, 01/31/2016. TECHNIQUE: Four images of both knees were obtained. FINDINGS: Right knee: There is moderate arthritis of the patellofemoral joint and the medial joint space compartment of the knee. There is mild arthritis of the lateral joint space compartment of the knee. There is a 3 x 3 mm calcific density projected within the lateral joint space compartment of the knee. There is no knee joint effusion. There is lateral displacement of the patella consistent with medial patellar retinacular insufficiency. The periarticular soft tissues are normal. Left knee: There is moderate arthritis of the patellofemoral joint and severe arthritis of the medial joint space compartment of the knee. There is mild arthritis of the lateral joint space compartment of the knee. There is no knee joint effusion. The periarticular soft tissues are normal. IMPRESSION: 1. [id number] tricompartment arthritis of the right knee. 2. Tricompartment arthritis of the left knee most severe at the medial joint space compartment. 3. There are no knee joint effusions. 4. Other findings as noted. <Electronically signed by Sreedhar Richard > 07/10/21 [id number]
--- NOTE | 2021-07-10 13:01 | REP ---
INDICATION: ARTHRITIS/ HAVING LABS FIRST. COMPARISON: Bilateral knees, same day TECHNIQUE: Standing frontal view of both knees was performed. FINDINGS: There is severe arthritis of the medial joint space compartment of both knees. There is mild arthritis of the lateral joint space compartment of both knees. The periarticular soft tissues are normal. IMPRESSION: Arthritis of the medial and lateral joint space compartments of both knees, as described. <Electronically signed by Sreedhar Richard > 07/10/21 [id number]
[2021-07-12 13:10] LABS: ANTINUCLEAR ANTIBODIES DIRECT Negative (Negative)
== END ==
LOC: M RAD 11:08
PROVIDERS: ATTEND Internal Medicine Cardiovascular Disease
DX: D64.9 Anemia, unspecified (principal); E78.5 Hyperlipidemia, unspecified; M17.0 Bilateral primary osteoarthritis of knee

== ENCOUNTER → 2021-12-21 | Outpatient (CLI) | payer BC, OTHER ==
[2021-12-21 15:21] LABS: HEMATOCRIT 34.2 % (36.0-47.0); MEAN CORPUSCULAR HEMOGLOBIN 28.5 pg (27.0-33.0); MEAN CORPUSCULAR HGB CONC 32.2 g/dl (32.0-36.5); MEAN CORPUSCULAR VOLUME 88.6 fl (80.0-96.0); PLATELET COUNT, AUTOMATED 263 10^3/uL (150-450); RED BLOOD COUNT 3.86 10^6/uL (4.00-5.40); WHITE BLOOD COUNT 6.5 10^3/uL (4.0-10.0)
[2021-12-21 15:57] LABS: ALT/SGPT 15 U/L (12-78); BILIRUBIN,TOTAL 0.4 MG/DL (0.2-1.0); BLOOD UREA NITROGEN 12 MG/DL (7-18); CALCIUM LEVEL 9.3 MG/DL (8.8-10.2); CARBON DIOXIDE LEVEL 28 MEQ/L (21-32); CHLORIDE LEVEL 108 MEQ/L (98-107); CHOLESTEROL LEVEL 143 MG/DL (<200); CHOLESTEROL RISK RATIO 2.344 (<5); CREATININE FOR GFR 0.79 MG/DL (0.55-1.30); FREE T4 0.99 NG/DL (0.76-1.46); GLOMERULAR FILTRATION RATE > 60.0 (>45); GLUCOSE, FASTING 103 MG/DL (70-100); HDL CHOLESTEROL 61 MG/DL (>40); LDL CHOLESTEROL 62 MG/DL (<100); NON-HDL-C 82 MG/DL; POTASSIUM SERUM 4.2 MEQ/L (3.5-5.1); SODIUM LEVEL 140 MEQ/L (136-145); TOTAL PROTEIN 7.5 GM/DL (6.4-8.2); TRIGLYCERIDES LEVEL 99 MG/DL (<150)
== END ==
LOC: M PLALAB 12:33
PROVIDERS: ATTEND Internal Medicine Cardiovascular Disease
DX: E03.9 Hypothyroidism, unspecified (principal); D64.9 Anemia, unspecified

== ENCOUNTER 2022-01-04 16:54 | Emergency (ER) | payer BC, OTHER ==
[~2022-01-04] VITALS: Ht 154.9 cm; Wt 60.9 kg
[2022-01-04] MEDS ORDERED: ALBU8.5H (17:39)
[2022-01-04] MEDS ORDERED: NEBI2.5T (17:39)
[2022-01-04 18:47] VITALS: O2SAT 98
[2022-01-04 20:47] VITALS: BP 141/72
[2022-01-04] MEDS ORDERED: NIRMATRELVIR/RITONAVIR CO-PACK (EMERGENCY USE AUTH) PO SCH ×2 (21:00)
== END 2022-01-04 20:48 | disposition home or self-care (01) ==
LOC: M ED 16:54
DX: R50.9 Fever, unspecified (principal); J02.9 Acute pharyngitis, unspecified; U07.1 COVID-19; I10 Essential (primary) hypertension; J45.909 Unspecified asthma, uncomplicated; E78.5 Hyperlipidemia, unspecified; K21.9 Gastro-esophageal reflux disease without esophagitis; Z79.899 Other long term (current) drug therapy; Z88.8 Allergy status to other drugs, medicaments and biological substances

== ENCOUNTER → 2022-04-07 | Outpatient (CLI) | payer BC, OTHER ==
[~2022-04-07] MED LIST changes: +ALBU8.5H; +NEBI2.5T
== END ==
LOC: M RAD 10:57
PROVIDERS: ATTEND Otolaryngology
DX: D44.0 Neoplasm of uncertain behavior of thyroid gland (principal)

== ENCOUNTER → 2022-06-05 | Outpatient (CLI) | payer BC, OTHER ==
[~2022-06-05] MED LIST changes: +ALBU6.7H6 INH; -PROV108A INH
== END ==
LOC: M PLAIMG 06-02 15:19
PROVIDERS: ATTEND Internal Medicine Cardiovascular Disease
DX: J18.9 Pneumonia, unspecified organism (principal); J20.9 Acute bronchitis, unspecified

== ENCOUNTER → 2022-08-03 | Outpatient (CLI) | payer BC, OTHER ==
[2022-08-03 10:51] LABS: APPEARANCE, URINE MANUAL HAZY (CLEAR); COLOR, URINE MANUAL YELLOW (YELLOW)
[2022-08-03 10:53] LABS: BILIRUBIN, URINE MANUAL NEGATIVE (NEGATIVE); BLOOD URINE MANUAL POSITIVE (NEGATIVE); GLUCOSE, URINE (UA) MANUAL NEGATIVE (NEGATIVE); KETONE, URINE MANUAL NEGATIVE (NEGATIVE); LEUKOCYTE ESTERASE, URINE MAN POSITIVE (NEGATIVE); NITRITE, URINE MANUAL NEGATIVE (NEGATIVE); PROTEIN, URINE MANUAL NEGATIVE (NEGATIVE); SPECIFIC GRAVITY,URINE MANUAL 1.021 (1.002-1.035); UROBILINOGEN, URINE MANUAL NORMAL (NORMAL)
[2022-08-03 11:05] LABS: SQUAMOUS EPITHELIAL CELL URINE MOD AMOUNT /hpf (SMALL AMT); WBC, URINE TNTC /hpf (0-3)
[2022-08-03 11:06] LABS: AMORPHOUS SEDIMENT, URINE MOD AMOUNT (NEGATIVE); BACTERIA, URINE SMALL AMOUNT; HYALINE CAST, URINE NONE SEEN /lpf (0-1); MUCUS, URINE SMALL AMOUNT (NEGATIVE)
[2022-08-03 11:09] LABS: HEMATOCRIT 36.8 % (36.0-47.0); HEMOGLOBIN 11.5 g/dl (12.0-15.5); MEAN CORPUSCULAR HEMOGLOBIN 28.7 pg (27.0-33.0); MEAN CORPUSCULAR HGB CONC 31.3 g/dl (32.0-36.5); MEAN CORPUSCULAR VOLUME 91.8 fl (80.0-96.0); PLATELET COUNT, AUTOMATED 303 10^3/uL (150-450); RED BLOOD COUNT 4.01 10^6/uL (4.00-5.40); WHITE BLOOD COUNT 9.7 10^3/uL (4.0-10.0)
[2022-08-03 11:21] LABS: INR 0.93; PARTIAL THROMBOPLASTIN TIME 25.2 SECONDS (24.8-34.2); PROTHROMBIN TIME 12.7 SECONDS (12.5-14.5)
[2022-08-03 11:26] LABS: IRON (FE) 74 UG/DL (50-170)
[2022-08-03 11:33] LABS: ALBUMIN 3.5 G/DL (3.2-5.2); ALKALINE PHOSPHATASE 82 U/L (46-116); ALT/SGPT < 9 U/L (7.0-40); AST/SGOT 11 U/L (<34); BILIRUBIN,TOTAL 0.6 MG/DL (0.3-1.2); BLOOD UREA NITROGEN 19 MG/DL (9-23); CALCIUM LEVEL 9.6 MG/DL (8.3-10.6); CARBON DIOXIDE LEVEL 27 MMOL/L (20-31); CHLORIDE LEVEL 103 MMOL/L (98-107); CHOLESTEROL LEVEL 223 MG/DL (<200); CHOLESTEROL RISK RATIO 2.21 (<5); CREATININE FOR GFR 0.71 MG/DL (0.55-1.30); GLOMERULAR FILTRATION RATE > 60.0 (>45); GLUCOSE, FASTING 101 MG/DL (74-106); HDL CHOLESTEROL 100.5 MG/DL (>40); LDL CHOLESTEROL 99.7 MG/DL (<100); NON-HDL-C 123 MG/DL; POTASSIUM SERUM 4.3 MMOL/L (3.5-5.1); SODIUM LEVEL 139 MMOL/L (136-145); TOTAL PROTEIN 6.9 G/DL (5.7-8.2); TRIGLYCERIDES LEVEL 114 MG/DL (<150)
== END ==
LOC: M PLALAB 08:25
PROVIDERS: ATTEND Internal Medicine Cardiovascular Disease
DX: Z01.818 Encounter for other preprocedural examination (principal)

== ENCOUNTER → 2023-05-28 | Outpatient (CLI) | payer BC, OTHER ==
[~2023-05-28] MED LIST changes: -MIRT-62; +MIRT-88
== END ==
LOC: M WHC 10:23
PROVIDERS: ATTEND Nurse Practitioner Family
DX: Z12.31 Encounter for screening mammogram for malignant neoplasm of breast (principal)

== ENCOUNTER → 2023-07-02 | Outpatient (CLI) | payer BC, OTHER ==
[2023-07-02 14:29] LABS: BASO # 0.1 10^3/uL (0.0-0.2); BASO % 0.7 % (0.0-1.0); EOS # 0.3 10^3/uL (0.0-0.5); EOS % 4.1 % (0.0-3.0); HEMATOCRIT 36.5 % (36.0-47.0); HEMOGLOBIN 11.7 g/dl (12.0-15.5); LYMPH # 3.2 10^3/uL (1.5-5.0); MEAN CORPUSCULAR HEMOGLOBIN 28.1 pg (27.0-33.0); MEAN CORPUSCULAR HGB CONC 32.1 g/dl (32.0-36.5); MEAN CORPUSCULAR VOLUME 87.7 fl (80.0-96.0); MONO # 0.5 10^3/uL (0.0-0.8); MONO % 7.2 % (2.0-8.0); NEUTROPHILS # 3.4 10^3/uL (1.5-8.5); NEUTROPHILS % 44.7 % (36.0-66.0); PLATELET COUNT, AUTOMATED 311 10^3/uL (150-450); RED BLOOD COUNT 4.16 10^6/uL (4.00-5.40); WHITE BLOOD COUNT 7.5 10^3/uL (4.0-10.0)
[2023-07-02 14:54] LABS: ALKALINE PHOSPHATASE 111 U/L (46-116); ALT/SGPT 11 U/L (7.0-40); AST/SGOT 18 U/L (<34); BILIRUBIN,TOTAL 0.6 MG/DL (0.3-1.2); BLOOD UREA NITROGEN 16 MG/DL (9-23); CARBON DIOXIDE LEVEL 27 MMOL/L (20-31); CHLORIDE LEVEL 106 MMOL/L (98-107); CHOLESTEROL LEVEL 186 MG/DL (<200); CHOLESTEROL RISK RATIO 2.62 (<5); CREATININE FOR GFR 0.68 MG/DL (0.55-1.30); GLOMERULAR FILTRATION RATE > 60.0 (>45); GLUCOSE, FASTING 94 MG/DL (74-106); HDL CHOLESTEROL 70.8 MG/DL (>40); NON-HDL-C 115.2 MG/DL; POTASSIUM SERUM 4.1 MMOL/L (3.5-5.1); SODIUM LEVEL 141 MMOL/L (136-145); TOTAL PROTEIN 7.4 G/DL (5.7-8.2); TRIGLYCERIDES LEVEL 136 MG/DL (<150)
[2023-07-02 15:08] LABS: ERYTHROCYTE SEDIMENTATION RATE 15 mm/hr (0-30)
[2023-07-03 14:11] LABS: ANTINUCLEAR ANTIBODIES DIRECT Negative (Negative)
== END ==
LOC: M PLALAB 10:57
PROVIDERS: ATTEND Internal Medicine Cardiovascular Disease
DX: D64.9 Anemia, unspecified (principal); R73.03 Prediabetes; E78.5 Hyperlipidemia, unspecified; M15.0 Primary generalized (osteo)arthritis

== ENCOUNTER → 2023-08-07 | Outpatient (CLI) | payer BC, OTHER ==
[~2023-08-07] MED LIST changes: +E-Z-GAS II EFFERVESCENT PACKET (SODIUM BICARB./CITRIC ACID/SIMETHICONE) As Ordered ONE; +E-Z-HD 98% w/w 340GM SUSP BTL As Ordered ONE; +E-Z-PAQUE 96% w/w SUSP 176GM BTL As Ordered ONE
== END ==
LOC: M RAD 08:12
PROVIDERS: ATTEND Internal Medicine Cardiovascular Disease
DX: R10.9 Unspecified abdominal pain (principal)

== ENCOUNTER → 2023-10-10 | Outpatient (CLI) | payer BC, OTHER ==
[~2023-10-10] MED LIST changes: -E-Z-GAS II EFFERVESCENT PACKET (SODIUM BICARB./CITRIC ACID/SIMETHICONE) As Ordered ONE; -E-Z-HD 98% w/w 340GM SUSP BTL As Ordered ONE; -E-Z-PAQUE 96% w/w SUSP 176GM BTL As Ordered ONE
[2023-10-10 17:48] LABS: BASO # 0.1 10^3/uL (0.0-0.2); BASO % 0.7 % (0.0-1.0); EOS # 0.3 10^3/uL (0.0-0.5); EOS % 4.1 % (0.0-3.0); HEMATOCRIT 34.7 % (36.0-47.0); HEMOGLOBIN 11.3 g/dl (12.0-15.5); LYMPH # 2.6 10^3/uL (1.5-5.0); LYMPH % 36.6 % (24.0-44.0); MEAN CORPUSCULAR HEMOGLOBIN 28.5 pg (27.0-33.0); MEAN CORPUSCULAR HGB CONC 32.6 g/dl (32.0-36.5); MEAN CORPUSCULAR VOLUME 87.6 fl (80.0-96.0); MONO # 0.6 10^3/uL (0.0-0.8); MONO % 8.3 % (2.0-8.0); NEUTROPHILS # 3.6 10^3/uL (1.5-8.5); PLATELET COUNT, AUTOMATED 286 10^3/uL (150-450); RED BLOOD COUNT 3.96 10^6/uL (4.00-5.40); WHITE BLOOD COUNT 7.1 10^3/uL (4.0-10.0)
[2023-10-10 18:19] LABS: ALBUMIN 3.8 G/DL (3.2-5.2); ALKALINE PHOSPHATASE 119 U/L (46-116); ALT/SGPT 12 U/L (7.0-40); AST/SGOT 17 U/L (<34); BILIRUBIN,TOTAL 0.3 MG/DL (0.3-1.2); BLOOD UREA NITROGEN 18 MG/DL (9-23); CALCIUM LEVEL 9.4 MG/DL (8.3-10.6); CARBON DIOXIDE LEVEL 28 MMOL/L (20-31); CHLORIDE LEVEL 107 MMOL/L (98-107); CHOLESTEROL LEVEL 212 MG/DL (<200); CREATININE FOR GFR 0.65 MG/DL (0.55-1.30); GLOMERULAR FILTRATION RATE > 60.0 (>39); GLUCOSE, FASTING 122 MG/DL (74-106); HDL CHOLESTEROL 64.1 MG/DL (>40); LDL CHOLESTEROL 85.3 MG/DL (<100); NON-HDL-C 147.9 MG/DL; POTASSIUM SERUM 3.7 MMOL/L (3.5-5.1); SODIUM LEVEL 140 MMOL/L (136-145); TOTAL PROTEIN 7.2 G/DL (5.7-8.2); TRIGLYCERIDES LEVEL 313 MG/DL (<150)
== END ==
LOC: M PLALAB 14:44
PROVIDERS: ATTEND Internal Medicine Cardiovascular Disease
DX: D64.9 Anemia, unspecified (principal); E11.9 Type 2 diabetes mellitus without complications; E78.5 Hyperlipidemia, unspecified; N39.0 Urinary tract infection, site not specified

== ENCOUNTER → 2023-10-11 | Outpatient (REF) | payer BC, OTHER ==
[2023-10-11 13:50] LABS: APPEARANCE, URINE CLEAR (CLEAR); BACTERIA, URINE AUTO NEGATIVE (NEGATIVE); BILIRUBIN, URINE AUTO NEGATIVE (NEGATIVE); BLOOD, URINE BLOOD 1+ (NEGATIVE); COLOR, URINE YELLOW (YELLOW); GLUCOSE, URINE (UA) AUTO NEGATIVE (NEGATIVE); KETONE, URINE AUTO NEGATIVE (NEGATIVE); LEUKOCYTE ESTERASE, URINE AUTO 2+ (NEGATIVE); MUCUS, URINE SMALL (NEGATIVE); NITRITE, URINE AUTO NEGATIVE (NEGATIVE); PROTEIN, URINE AUTO NEGATIVE (NEGATIVE); RBC, URINE AUTO 7 /HPF (0-3); SPECIFIC GRAVITY URINE AUTO 1.019 (1.002-1.035); SQUAMOUS EPITHELIAL CELL UR AU 0 /HPF (0-6); UROBILINOGEN, URINE AUTO 0.2 mg/dL (0.0-2.0); WBC, URINE AUTO 12 /HPF (0-3)
== END ==
LOC: M LAB REF 12:54
PROVIDERS: ATTEND Internal Medicine Cardiovascular Disease
DX: E11.9 Type 2 diabetes mellitus without complications (principal); E78.5 Hyperlipidemia, unspecified; D64.9 Anemia, unspecified; N39.0 Urinary tract infection, site not specified

== ENCOUNTER → 2023-12-24 | Outpatient (CLI) | payer BC ==
[2023-12-24 12:57] LABS: BASO % 0.5 % (0.0-1.0); EOS # 0.2 10^3/uL (0.0-0.5); EOS % 3.5 % (0.0-3.0); HEMATOCRIT 36.5 % (36.0-47.0); HEMOGLOBIN 11.8 g/dl (12.0-15.5); LYMPH # 2.8 10^3/uL (1.5-5.0); LYMPH % 42.1 % (24.0-44.0); MEAN CORPUSCULAR HEMOGLOBIN 28.4 pg (27.0-33.0); MEAN CORPUSCULAR HGB CONC 32.3 g/dl (32.0-36.5); MEAN CORPUSCULAR VOLUME 87.7 fl (80.0-96.0); MONO # 0.5 10^3/uL (0.0-0.8); MONO % 7.8 % (2.0-8.0); NEUTROPHILS % 45.9 % (36.0-66.0); PLATELET COUNT, AUTOMATED 289 10^3/uL (150-450); RED BLOOD COUNT 4.16 10^6/uL (4.00-5.40); WHITE BLOOD COUNT 6.6 10^3/uL (4.0-10.0)
[2023-12-24 13:21] LABS: ALBUMIN 3.5 G/DL (3.2-5.2); ALKALINE PHOSPHATASE 114 U/L (46-116); ALT/SGPT < 9 U/L (7.0-40); AST/SGOT 16 U/L (<34); BILIRUBIN,TOTAL 0.6 MG/DL (0.3-1.2); BLOOD UREA NITROGEN 10 MG/DL (9-23); CALCIUM LEVEL 9.6 MG/DL (8.3-10.6); CARBON DIOXIDE LEVEL 28 MMOL/L (20-31); CHLORIDE LEVEL 107 MMOL/L (98-107); CHOLESTEROL LEVEL 216 MG/DL (<200); CHOLESTEROL RISK RATIO 3.28 (<5); CREATININE FOR GFR 0.75 MG/DL (0.55-1.30); GLOMERULAR FILTRATION RATE > 60.0 (>39); GLUCOSE, FASTING 100 MG/DL (74-106); HDL CHOLESTEROL 65.8 MG/DL (>40); LDL CHOLESTEROL 111.8 MG/DL (<100); NON-HDL-C 150.2 MG/DL; POTASSIUM SERUM 4.3 MMOL/L (3.5-5.1); SODIUM LEVEL 143 MMOL/L (136-145); TOTAL PROTEIN 7.1 G/DL (5.7-8.2); TRIGLYCERIDES LEVEL 192 MG/DL (<150)
== END ==
LOC: M PLALAB 11:24
PROVIDERS: ATTEND Internal Medicine Cardiovascular Disease
DX: D64.9 Anemia, unspecified (principal); N39.0 Urinary tract infection, site not specified; E78.5 Hyperlipidemia, unspecified

== ENCOUNTER → 2023-12-25 | Outpatient (REF) | payer BC, OTHER ==
[~2023-12-25] MED LIST changes: +ROSU5TAB40; -ROSU5TAB5
[2023-12-25 17:52] LABS: APPEARANCE, URINE CLEAR (CLEAR); BACTERIA, URINE AUTO 1+ (NEGATIVE); BILIRUBIN, URINE AUTO NEGATIVE (NEGATIVE); BLOOD, URINE BLOOD 1+ (NEGATIVE); COLOR, URINE YELLOW (YELLOW); GLUCOSE, URINE (UA) AUTO NEGATIVE (NEGATIVE); KETONE, URINE AUTO NEGATIVE (NEGATIVE); LEUKOCYTE ESTERASE, URINE AUTO 3+ (NEGATIVE); NITRITE, URINE AUTO NEGATIVE (NEGATIVE); PROTEIN, URINE AUTO NEGATIVE (NEGATIVE); RBC, URINE AUTO 6 /HPF (0-3); SPECIFIC GRAVITY URINE AUTO 1.006 (1.002-1.035); SQUAMOUS EPITHELIAL CELL UR AU 2 /HPF (0-6); UROBILINOGEN, URINE AUTO 0.2 mg/dL (0.0-2.0); WBC, URINE AUTO 29 /HPF (0-3)
== END ==
LOC: M LAB REF 17:04
PROVIDERS: ATTEND Internal Medicine Cardiovascular Disease
DX: D64.9 Anemia, unspecified (principal); N39.0 Urinary tract infection, site not specified; E78.5 Hyperlipidemia, unspecified

== ENCOUNTER → 2024-05-29 | Outpatient (CLI) | payer BC | LOC: M WHC 10:11 | PROVIDERS: ATTEND Nurse Practitioner Family | DX: Z12.31 Encounter for screening mammogram for malignant neoplasm of breast (principal); R92.333 Mammographic heterogeneous density, bilateral breasts ==

== ENCOUNTER → 2024-07-01 | Outpatient (CLI) | payer BC, OTHER ==
[2024-07-01 13:15] LABS: AMORPHOUS SEDIMENT MODERATE (NEGATIVE); APPEARANCE, URINE TURBID (CLEAR); BACTERIA, URINE AUTO 2+ (NEGATIVE); BILIRUBIN, URINE AUTO NEGATIVE (NEGATIVE); BLOOD, URINE BLOOD 2+ (NEGATIVE); COLOR, URINE AMBER (YELLOW); GLUCOSE, URINE (UA) AUTO NEGATIVE (NEGATIVE); KETONE, URINE AUTO NEGATIVE (NEGATIVE); LEUKOCYTE ESTERASE, URINE AUTO 3+ (NEGATIVE); MUCUS, URINE SMALL (NEGATIVE); NITRITE, URINE AUTO NEGATIVE (NEGATIVE); PROTEIN, URINE AUTO NEGATIVE (NEGATIVE); RBC, URINE AUTO 1 /HPF (0-3); SPECIFIC GRAVITY URINE AUTO 1.018 (1.002-1.035); SQUAMOUS EPITHELIAL CELL UR AU 1 /HPF (0-6); UROBILINOGEN, URINE AUTO 0.2 mg/dL (0.0-2.0); WBC, URINE AUTO 17 /HPF (0-3)
[2024-07-01 13:16] LABS: BASO # 0.1 10^3/uL (0.0-0.2); BASO % 0.7 % (0.0-1.0); EOS # 0.4 10^3/uL (0.0-0.5); EOS % 4.6 % (0.0-3.0); HEMATOCRIT 36.9 % (36.0-47.0); HEMOGLOBIN 11.8 g/dl (12.0-15.5); LYMPH # 2.8 10^3/uL (1.5-5.0); LYMPH % 36.6 % (24.0-44.0); MEAN CORPUSCULAR HEMOGLOBIN 27.9 pg (27.0-33.0); MEAN CORPUSCULAR VOLUME 87.2 fl (80.0-96.0); MONO # 0.6 10^3/uL (0.0-0.8); MONO % 7.8 % (2.0-8.0); NEUTROPHILS # 3.8 10^3/uL (1.5-8.5); NEUTROPHILS % 49.6 % (36.0-66.0); PLATELET COUNT, AUTOMATED 283 10^3/uL (150-450); RED BLOOD COUNT 4.23 10^6/uL (4.00-5.40); WHITE BLOOD COUNT 7.7 10^3/uL (4.0-10.0)
[2024-07-01 13:44] LABS: ALBUMIN 3.9 G/DL (3.2-5.2); ALKALINE PHOSPHATASE 127 U/L (35-104); ALT/SGPT 10 U/L (7.0-40); AST/SGOT 11 U/L (<34); BILIRUBIN,TOTAL 0.6 MG/DL (0.3-1.2); BLOOD UREA NITROGEN 14 MG/DL (9-23); CALCIUM LEVEL 10.5 MG/DL (8.3-10.6); CARBON DIOXIDE LEVEL 28 MMOL/L (20-31); CHLORIDE LEVEL 106 MMOL/L (98-107); CREATININE FOR GFR 0.71 MG/DL (0.55-1.30); GLOMERULAR FILTRATION RATE > 60.0 (>39); GLUCOSE, FASTING 100 MG/DL (74-106); POTASSIUM SERUM 4.3 MMOL/L (3.5-5.1); SODIUM LEVEL 139 MMOL/L (136-145); TOTAL PROTEIN 7.8 G/DL (5.7-8.2)
== END ==
LOC: M PLALAB 09:25
PROVIDERS: ATTEND Internal Medicine Cardiovascular Disease
DX: N39.0 Urinary tract infection, site not specified (principal); D64.9 Anemia, unspecified

== ENCOUNTER → 2024-08-05 | Outpatient (CLI) | payer BC ==
[~2024-08-05] MED LIST changes: -ROSU5TAB40; +ROSU5TAB49
[2024-08-05 15:49] LABS: THYROID STIMULATING HORMONE 1.558 uIU/ML (0.55-4.78); TOTAL 25(OH) VITAMIN D 18.7 NG/ML (20.0-100.0); VITAMIN B12 LEVEL 381 PG/ML (211-911)
[2024-08-05 15:50] LABS: FOLATE > 24.0 NG/ML (>5.4); FREE T4 1.08 NG/DL (0.89-1.76)
[2024-08-11 12:57] LABS: VITAMIN E(GAMMA TOCOPHEROL) 2.1 mg/L (<=4.3)
== END ==
LOC: M PLALAB 12:23
PROVIDERS: ATTEND Student in an Organized Health Care Education/Training Program
DX: E03.9 Hypothyroidism, unspecified (principal); G47.00 Insomnia, unspecified; I10 Essential (primary) hypertension; E53.8 Deficiency of other specified B group vitamins

== ENCOUNTER 2024-11-25 16:30 | Emergency (ER) | payer BC ==
[~2024-11-25] VITALS: Ht 154.9 cm; Wt 60.7 kg
[2024-11-25] MEDS ORDERED: ROSU10TA61 (16:39)
[2024-11-25] MEDS ORDERED: TRAZ-252 (16:39)
[2024-11-25] MEDS ORDERED: CAND16TA17 (16:39)
[2024-11-25] MEDS ORDERED: AZIT-12 (16:39)
[2024-11-25] MEDS ORDERED: NIRM1TAB14 PO (19:21)
[2024-11-25 20:00] VITALS: BP 111/58
[2024-11-25 20:01] VITALS: O2SAT 98
[2024-11-25 20:20] VITALS: TEMP 97.8
== END 2024-11-25 20:19 | disposition home or self-care (01) ==
LOC: M ED 16:30
DX: U07.1 COVID-19 (principal); I11.9 Hypertensive heart disease without heart failure; K21.9 Gastro-esophageal reflux disease without esophagitis; Z79.899 Other long term (current) drug therapy; Z88.8 Allergy status to other drugs, medicaments and biological substances

== ENCOUNTER 2024-12-05 13:18 | Emergency (ER) | payer BC, MEDICARE ==
[~2024-12-05] VITALS: Ht 154.9 cm; Wt 62.1 kg
[~2024-12-05 13:18] MED LIST changes: +AZIT-12; +CAND16TA17; +NIRM1TAB14 PO; +ROSU10TA61; +TRAZ-252
[2024-12-05] MEDS ORDERED: DEXA2TA (13:31)
[2024-12-05] MEDS ORDERED: DOXY100C3 (13:31)
[2024-12-05 14:49] LABS: BASO % 0.2 % (0.0-1.0); EOS # 0.1 10^3/uL (0.0-0.5); EOS % 0.8 % (0.0-3.0); HEMATOCRIT 33.9 % (36.0-47.0); LYMPH # 3.5 10^3/uL (1.5-5.0); LYMPH % 34.8 % (24.0-44.0); MEAN CORPUSCULAR HEMOGLOBIN 27.8 pg (27.0-33.0); MEAN CORPUSCULAR HGB CONC 32.4 g/dl (32.0-36.5); MEAN CORPUSCULAR VOLUME 85.6 fl (80.0-96.0); NEUTROPHILS # 5.5 10^3/uL (1.5-8.5); NEUTROPHILS % 53.9 % (36.0-66.0); PLATELET COUNT, AUTOMATED 354 10^3/uL (150-450); RED BLOOD COUNT 3.96 10^6/uL (4.00-5.40); WHITE BLOOD COUNT 10.2 10^3/uL (4.0-10.0)
[2024-12-05 15:09] LABS: BLOOD UREA NITROGEN 13 MG/DL (9-23); C REACTIVE PROTEIN QUANTITATIV < 0.50 MG/DL (<1.0); CALCIUM LEVEL 9.5 MG/DL (8.3-10.6); CARBON DIOXIDE LEVEL 29 MMOL/L (20-31); CHLORIDE LEVEL 104 MMOL/L (98-107); CREATININE FOR GFR 0.58 MG/DL (0.55-1.30); GLOMERULAR FILTRATION RATE > 90.0 (>39); GLUCOSE, FASTING 72 MG/DL (74-106); POTASSIUM SERUM 3.3 MMOL/L (3.5-5.1); SODIUM LEVEL 142 MMOL/L (136-145)
[2024-12-05 15:22] LABS: ERYTHROCYTE SEDIMENTATION RATE 30 mm/hr (0-30)
[2024-12-05] MEDS ORDERED: ISOVUE-370 76% 100ML VIAL As Ordered ONE (15:34)
[2024-12-05 17:36] VITALS: BP 155/70; TEMP 97; O2SAT 98
== END 2024-12-05 17:39 | disposition home or self-care (01) ==
LOC: M ED 13:18
DX: M54.2 Cervicalgia (principal); J35.8 Other chronic diseases of tonsils and adenoids; I10 Essential (primary) hypertension; E78.5 Hyperlipidemia, unspecified; K21.9 Gastro-esophageal reflux disease without esophagitis; J45.909 Unspecified asthma, uncomplicated; Z88.6 Allergy status to analgesic agent; Z79.899 Other long term (current) drug therapy
CPT/HCPCS: 36415; 70491; 80048; 85025; 85652; 86140; 99284; Q9967

== ENCOUNTER → 2025-01-01 | Outpatient (CLI) | payer BC ==
[~2025-01-01] MED LIST changes: +DEXA2TA; +DOXY100C3
[2025-01-01 12:57] LABS: BASO % 0.5 % (0.0-1.0); EOS # 0.3 10^3/uL (0.0-0.5); HEMATOCRIT 33.2 % (36.0-47.0); HEMOGLOBIN 10.7 g/dl (12.0-15.5); LYMPH # 2.9 10^3/uL (1.5-5.0); LYMPH % 39.5 % (24.0-44.0); MEAN CORPUSCULAR HEMOGLOBIN 28.1 pg (27.0-33.0); MEAN CORPUSCULAR HGB CONC 32.2 g/dl (32.0-36.5); MEAN CORPUSCULAR VOLUME 87.1 fl (80.0-96.0); MONO # 0.5 10^3/uL (0.0-0.8); MONO % 6.9 % (2.0-8.0); NEUTROPHILS # 3.6 10^3/uL (1.5-8.5); NEUTROPHILS % 48.8 % (36.0-66.0); PLATELET COUNT, AUTOMATED 298 10^3/uL (150-450); RED BLOOD COUNT 3.81 10^6/uL (4.00-5.40); WHITE BLOOD COUNT 7.3 10^3/uL (4.0-10.0)
[2025-01-01 13:21] LABS: C REACTIVE PROTEIN QUANTITATIV < 0.50 MG/DL (<1.0)
[2025-01-01 13:22] LABS: ALBUMIN 3.6 G/DL (3.2-5.2); ALKALINE PHOSPHATASE 109 U/L (35-104); ALT/SGPT 11 U/L (7.0-40); AST/SGOT 14 U/L (<34); BILIRUBIN,TOTAL 0.4 MG/DL (0.3-1.2); BLOOD UREA NITROGEN 9 MG/DL (9-23); CALCIUM LEVEL 9.7 MG/DL (8.3-10.6); CARBON DIOXIDE LEVEL 29 MMOL/L (20-31); CHLORIDE LEVEL 104 MMOL/L (98-107); CREATININE FOR GFR 0.61 MG/DL (0.55-1.30); GLOMERULAR FILTRATION RATE > 90.0 (>39); GLUCOSE, FASTING 94 MG/DL (74-106); POTASSIUM SERUM 3.4 MMOL/L (3.5-5.1); SODIUM LEVEL 143 MMOL/L (136-145); TOTAL PROTEIN 6.9 G/DL (5.7-8.2)
== END ==
LOC: M PLALAB 09:55
PROVIDERS: ATTEND Internal Medicine Cardiovascular Disease
DX: I10 Essential (primary) hypertension (principal); E78.5 Hyperlipidemia, unspecified; U09.9 Post COVID-19 condition, unspecified

== ENCOUNTER → 2025-06-09 | Outpatient (CLI) | payer MEDICARE, BC ==
[~2025-06-09] MED LIST changes: -NIRM1TAB14 PO; +NIRM1TAB16 PO
== END ==
LOC: M WHC 08:19
PROVIDERS: ATTEND Nurse Practitioner Family
DX: Z12.31 Encounter for screening mammogram for malignant neoplasm of breast (principal); R92.333 Mammographic heterogeneous density, bilateral breasts